=== PATIENT | male | born 1965 | race Caucasian/White ===

== ENCOUNTER 2016-04-08 08:08 | Outpatient (CLI) | payer OTHER ==
[2016-04-08] MEDS ORDERED: GADOBUTROL 10 MMOL/10 ML VIAL IVP ONE (08:31)
== END 2016-04-08 08:09 | disposition home or self-care (01) ==
DX: R51 Headache (principal)
CPT/HCPCS: 70553; A9585

== ENCOUNTER 2016-09-29 08:00 | Outpatient (CLI) | payer OTHER ==
[2016-11-03 12:17] LABS: TEST RESULT AMENDED (())
== END 2016-09-29 08:01 | disposition home or self-care (01) ==
LOC: LAB.R 08:00
PROVIDERS: ATTEND Family Medicine
DX: R21 Rash and other nonspecific skin eruption (principal)
CPT/HCPCS: 81599; 87070; 87077; 87205

== ENCOUNTER 2017-04-04 14:48 | Outpatient (CLI) | payer OTHER ==
--- NOTE | 2017-04-04 16:17 | MRI Preliminary Report ---
Exam: MRI ELBOW RT W/O IMPRESSION: 1. Complete tear of the distal attachment of the biceps tendon with partial retraction of the tendon fibers. 2. Old partial-thickness tear of the common extensor origin. 3. 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 [facility] MUSCULOSKELETAL RADIOLOGY SECTION The call report notification system was initiated by Dr. Jonathon Zhang at 16:06 hrs on 04/04/17 . The above findings were discussed with Nurse Wagner by Dr. Jonathon Zhang at 16:15 hrs on 04/04. SITE ID: [id number]
--- NOTE | 2017-04-04 16:22 | MRI Report ---
EXAM: RIGHT ELBOW MRI WITHOUT CONTRAST EXAM DATE: 04/04/2017 03:29 PM. CLINICAL HISTORY: Right biceps tendon disorder. Injured on 03/29/2017. COMPARISON: 04/03/2017. TECHNIQUE: Multiplanar, multisequence T1-weighted and fluid-sensitive sequences of the elbow without contrast. Other: None. FINDINGS: Motion artifact degrades image quality. Bones: There is a small subchondral cyst in the radial aspect of the humeral trochlea. A small focus of subchondral edema is seen in the posterior aspect of the radial head. There are no visible fractur es. Articular Cartilage: There is thinning of the hyaline cartilage of the humeral trochlea overlying the subchondral cyst. The findings are suggestive of a prior osteochondral injury. Ligaments: The collateral ligaments appear normal. Tendons: There is fluid signal intensity in the common extensor origin consistent with a partial-thic kness tear. The common flexor origin appears normal. There is a complete rupture of the distal attach ment of the biceps tendon with partial retraction of the tendon fibers into the distal arm. The muscu lotendinous junction is approximately 10 cm proximal to the radial tuberosity. Fluid surrounds the to rn fibers, consistent with blood. The distal triceps tendon appears intact. Musculature: No edema or fatty atrophy. Other: The cubital tunnel and ulnar nerve are unremarkable. No effusion. The subcutaneous tissues are unremarkable. IMPRESSION: 1. Complete tear of the distal attachment of the biceps tendon with partial retraction of the tendon fibers. 2. Old partial-thickness tear of the common extensor origin. 3. Findings suggestive of a prior osteochondral injury or low-grade osteoarthritis of the radial aspe ct of the humeroulnar joint. [facility] MUSCULOSKELETAL RADIOLOGY SECTION The call report notification system was initiated by Dr. Jonathon Zhang at 16:06 hrs on 04/04/17 . The above findings were discussed with Nurse Wagner by Dr. Jonathon Zhang at 16:15 hrs on . Referring Provider Line: [phone] SITE ID: [id number]
== END 2017-04-04 14:49 | disposition home or self-care (01) ==
LOC: DI 14:48
PROVIDERS: ATTEND Family Medicine
DX: S46.211A Strain of muscle, fascia and tendon of other parts of biceps, right arm, initial encounter (principal); S56.511D Strain of other extensor muscle, fascia and tendon at forearm level, right arm, subsequent encounter

== ENCOUNTER 2019-12-13 08:28 | Outpatient (CLI) | payer OTHER ==
--- NOTE | 2019-12-13 16:25 | XRAY Report ---
PROCEDURE: Chest 2 View X-Ray INDICATIONS: CHEST PAIN. Right posterior inferior rib pain. TECHNIQUE: 2 view(s) of the chest. COMPARISON: None. FINDINGS: Surgical changes and devices: None. Lungs and pleura: No pleural effusions or pneumothorax. Lungs are clear. Mediastinum: Mediastinal contours are normal. Heart size is normal. Bones and chest wall: No suspicious bony abnormalities. Age-appropriate degenerative changes are see n. No displaced rib fractures are seen. Soft tissues appear unremarkable. IMPRESSION: No displaced rib fractures can be seen on these chest plain films. If there is strong clinical concern for a rib fracture and it would affect clinical management decisi on making, then please consider a dedicated rib plain film series or a dedicated chest CT for further evaluation. No pneumothorax is seen. Reviewed by: Morales Olivares MD on 12/13/2019 3:23 PM [facility] Approved by: Morales Olivares MD on 12/13/2019 3:23 PM [facility] Station ID: [id number]
== END 2019-12-13 08:29 | disposition home or self-care (01) ==
LOC: DI 08:28
PROVIDERS: ATTEND Internal Medicine
DX: R07.81 Pleurodynia (principal)
CPT/HCPCS: 71046

== ENCOUNTER 2022-08-19 06:46 | Outpatient (CLI) | payer OTHER ==
[2022-08-19] MEDS ORDERED: iohexoL-300 100 ML VIAL ONE (07:00)
[2022-08-19 07:26] LABS: CREATININE 0.9 mg/dL (0.6-1.2)
[2022-08-19] MEDS ORDERED: DIATRIZOATE MEGLU/DIATRIZO SOD 30 ML BOTTLE PO ONE (08:22)
[2022-08-19] MEDS ORDERED: iohexoL-300 100 ML VIAL IVP ONE (08:22)
--- NOTE | 2022-08-19 12:17 | CT Report ---
PROCEDURE: ABDOMEN/PELVIS W INDICATIONS: LOWER ABD PAIN CONTRAST: 100ml omni 300 TECHNIQUE: After the administration of contrast, 5 mm thick sections acquired from the diaphragms to the symphys is. 5 mm thick coronal and sagittal reformats were acquired. For radiation dose reduction, the foll owing was used: automated exposure control, adjustment of mA and/or kV according to patient size. COMPARISON: 09/16/2013 FINDINGS: Image quality: Excellent. Lung bases and heart: Unremarkable. Liver: No solid mass. Gallbladder and biliary tree: Spleen: No splenomegaly. Pancreas: No pancreatic ductal dilation. Adrenals: No adrenal nodule. Kidneys and ureters: No hydronephrosis. No renal cystic lesion which requires follow up. No solid mas s. Bilateral parapelvic cysts. Bowel and peritoneum: No bowel distension. No pathologic free fluid. Diverticulosis without evidence of acute diverticulitis. The appendix is normal. Lymph nodes: No central or retroperitoneal adenopathy. Vessels: No infrarenal aortic aneurysm. PELVIS Reproductive organs: Unremarkable. Bladder: No abnormal wall thickening, accounting for underdistension. Pelvic lymph nodes: No pelvic adenopathy by size criteria. Bones: No aggressive osseous abnormality. Other: No significant ventral or inguinal hernia. IMPRESSION: No acute abdominal or pelvic abnormality. Reviewed by: Hugo Stewart on 08/19/2022 11:16 AM [facility] Approved by: Hugo Stewart on 08/19/2022 11:16 AM [facility] Station ID: [id number]
== END 2022-08-19 06:47 | disposition home or self-care (01) ==
LOC: DI 06:46
PROVIDERS: ATTEND Physician Assistant
DX: R10.30 Lower abdominal pain, unspecified (principal)
CPT/HCPCS: 36415; 74177; 82565; Q9963; Q9967

== ENCOUNTER 2022-08-19 06:47 | Outpatient (CLI) | payer OTHER | END 2022-08-19 06:48 | disposition home or self-care (01) | LOC: LAB 06:47 | PROVIDERS: ATTEND Physician Assistant | DX: Z53.9 Procedure and treatment not carried out, unspecified reason (principal) ==

== ENCOUNTER 2023-03-28 13:22 | Emergency (ER) | payer OTHER ==
--- NOTE | 2023-03-28 13:59 | ED Physician Documentation ---
PD HPI HEENT - Stated complaint Stated Complaint: SORE THROAT,FEVER,SOA - Chief complaint Chief Complaint: Resp - History obtained from History obtained from: Patient - Additional information Additional information: The patient comes to the emergency department chief complaint of upper respiratory symptoms for about the last 5 days. He states that he did not have any specific sick contacts, but just began to develop sore throat, cough, and nasal congestion. He states that he works outside and when he breathes in the cool morning air, he just feels a burning in his chest. He does not have any f ocused pain states the discomfort just spreads across the entire chest. He developed a fever this morning that went up to 103. He took some Tylenol at home and feels as though his fever is breaking now. He is sweaty and feels very hot. The patient states he is mainly concerned that he might have pneumonia. No other complaints at this time. PD PAST MEDICAL HISTORY - Past Medical History Past Medical History: Yes Cardiovascular: Hypertension GI: GERD Psych: Depression - Past Surgical History Past Surgical History: Yes Ortho: Other - Present Medications Home Medications: Ambulatory Orders Medication Instructions Recorded Confirmed Benzonatate [Tessalon] 200 mg PO TID PRN #21 cap 03/28/23 guaiFENesin/CODEINE [Robitussin AC] 5 - 10 ml PO Q6H PRN #100 ml 03/28/23 - Allergies Allergies/Adverse Reactions: Allergies Allergy/AdvReac Type Severity Reaction Status Date / Time Penicillins Allergy Anaphylaxis Verified 03/28/23 13:37 - Social History Does the pt smoke?: No Smoking Status: Never smoker Does the pt drink ETOH?: Yes Does the pt have substance abuse?: No PD ED PE NORMAL - Vitals Vital signs reviewed: Yes - General General: Alert and oriented X 3, No acute distress, Well developed/nourished - HEENT HEENT: Atraumatic, PERRL, EOMI, Moist mucous membranes, Pharynx benign - Neck Neck: Supple, no meningeal sign - Cardiac Cardiac: RRR, No murmur - Respiratory Respiratory: No respiratory distress, Clear bilaterally - Abdomen Abdomen: Soft, Non tender, Non distended - Derm Derm: Normal color, No rash, Other (Warm and moist) - Extremities Extremities: No deformity, No edema - Neuro Neuro: Alert and oriented X 3, 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 parapertussis DNA (PCR) NOT DETECTED Nasal Coronavir 229E PCR NOT DETECTED Nasal Coronavir HKU1 PCR NOT DETECTED Nasal Coronavir NL63 PCR NOT DETECTED Nasal Coronavir OC43 PCR NOT DETECTED Nasal Enterovir/Rhinovir PCR NOT DETECTED Nasal Influenza B PCR NOT DETECTED Nasal Influenza A PCR NOT DETECTED Nasal Parainfluen 1 PCR NOT DETECTED Nasal Parainfluen 2 PCR NOT DETECTED Nasal Parainfluen 3 PCR NOT DETECTED Nasal Parainfluen 4 PCR NOT DETECTED Nasal RSV (PCR) DETECTED A Nasal B.pertussis DNA PCR NOT DETECTED Nasal C.pneumoniae (PCR) NOT DETECTED Carlos A Human Metapneumo PCR NOT DETECTED Nasal M.pneumoniae (PCR) NOT DETECTED Nasal SARS-CoV-2 (PCR) NOT DETECTED Group A Strep Rapid Negative - Rads (name of study) Chest x-ray Relevant Findings:: Final report received, See rad report (Negative) PD Medical Decision Making - ED course Complexity details: reviewed results, re-evaluated patient, considered differential, d/w patient ED course: The patient was worked up with chest x-ray, strep test, and respiratory PCR panel. The chest x-ray and strep test were negative. PCR panel was positive for RSV. I informed the patient of his findings and we have discussed expected timeline of illness and symptomatic management at home. The patient is feeling much better after allowing more time for his Tylenol to work. We discussed the usual indications for return. Departure - Departure Disposition: 01 Home, Self Care Clinical Impression: RSV (respiratory syncytial virus infection) Condition: Stable Instructions: ED Viral Syndrome Prescriptions: guaiFENesin/CODEINE [Robitussin AC] 5 - 10 ml PO Q6H PRN #100 ml PRN Reason: Cough Benzonatate [Tessalon] 200 mg PO TID PRN #21 cap PRN Reason: Cough Comments: Your respiratory PCR panel was positive for RSV, a common upper respiratory virus. Your chest x-ray and strep test were negative. The RSV is certainly a reasonable explanation for all your symptoms and as a viral infection, it will ultimately resolve on its own. Depending on a number of factors, the illness may last for several days to a couple of weeks. Please be sure you are getting plenty of fluids to drink, specifically 8 to 10 cups of water per day. You may take ibuprofen and/or Tylenol as needed for fevers or other aches. You have been prescribed Tessalon and Lortab elixir for your cough. If you are taking the Lortab elixir, which is a liquid medication, please separate any doses of that from Tylenol by at least 4 hours, as the elixir also contains Tylenol. Prescriptions for the above medications have been electronically transmitted to the [facility] pharmacy in [place] at your request. If it anytime you feel that you are really beginning to worsen, especially with regard to respiratory status, you should return to the emergency department for further evaluation. Otherwise, please follow-up with your primary doctor as needed. Forms: PCP List, Activity restrictions Discharge Date/Time: 03/28/23 15:54
[2023-03-28 14:07] LABS: RAPID STREP SCREEN Negative (Negative)
[2023-03-28 14:41] LABS: B. PARAPERTUSSIS- RESP PCR PAN NOT DETECTED; B. PERTUSSIS- RESP PCR PANEL NOT DETECTED; C. PNEUMONIAE- RESP PCR PANEL NOT DETECTED; CORONAVIRUS 229E-RESP PCR NOT DETECTED; CORONAVIRUS HKU1-RESP PCR NOT DETECTED; CORONAVIRUS NL63-RESP PCR NOT DETECTED; CORONAVIRUS OC43-RESP PCR NOT DETECTED; HUMAN METAPNEUMOVIRUS NOT DETECTED; INFLUENZA A- RESP PCR PANEL NOT DETECTED; INFLUENZA B - RESP PCR PANEL NOT DETECTED; M. PNEUMONIAE- RESP PCR PANEL NOT DETECTED; PARAINFLUENZA VIRUS 1 NOT DETECTED; PARAINFLUENZA VIRUS 2 NOT DETECTED; PARAINFLUENZA VIRUS 3 NOT DETECTED; PARAINFLUENZA VIRUS 4 NOT DETECTED; RHINOVIRUS/ENTEROVIRUS NOT DETECTED; RSV- RESP PCR PANEL DETECTED; SARS-CoV-2 -RESP PCR PANEL NOT DETECTED
--- NOTE | 2023-03-28 14:52 | XRAY Report ---
PROCEDURE: Chest 1V INDICATIONS: cough/fever TECHNIQUE: One view of the chest was acquired. COMPARISON: None. FINDINGS: Surgical changes and devices: None. Lungs and pleura: No pleural effusions or pneumothorax. Lungs are clear. Mediastinum: Mediastinal contours appear normal. Heart size is normal. Bones and chest wall: No suspicious bony lesions. Overlying soft tissues appear unremarkable. IMPRESSION: No acute cardiopulmonary process. Reviewed by: Jerry Feldman MD on 03/28/2023 2:51 PM PST Approved by: Jerry Feldman MD on 03/28/2023 2:51 PM PST Station ID: [id number]
[2023-03-28 15:30] VITALS: BP 138/96; O2SAT 97
== END 2023-03-28 15:54 | disposition home or self-care (01) ==
LOC: ED 13:22
DX: R07.9 Chest pain, unspecified (principal); R06.02 Shortness of breath; R50.9 Fever, unspecified; B97.4 Respiratory syncytial virus as the cause of diseases classified elsewhere; I10 Essential (primary) hypertension
CPT/HCPCS: 86308; 87070; 87430; 87633; 99284